=== PATIENT | male | born 1960 | race Caucasian/White ===

== ENCOUNTER 2017-01-21 18:42 | Emergency (ER) | payer MEDICAID ==
[2017-01-21 19:27] VITALS: BP 169/92
[2017-01-21] MEDS ORDERED: Tetracaine HCl/PF 0.5% 4 ML Bottle EYERT ONE (19:38)
[2017-01-21] MEDS ORDERED: Fluorescein 1 MG Ophth Strip EYERT ONE (19:38)
--- NOTE | 2017-01-21 20:17 | EDM.PDOC ---
ED HPI GENERAL MEDICAL PROBLEM - General Chief Complaint: ENT Problem Stated Complaint: right eye injury Time Seen by Provider: 01/21/17 19:30 Source of Information: Reports: Patient History Limitations: Reports: No Limitations - History of Present Illness INITIAL COMMENTS - FREE TEXT/NARRATIVE: Patient states he was moving a radar detector and when he disengaged the suction cup to move it, the mechanism broke and the high pressure sent springs and broken parts towards his right eye. He denies any difference in sight, blurriness is residual from his stroke he has had. No pain in the eye. He has no other complaints. Onset: Today, Sudden Location: Reports: Head (right eye) Associated Symptoms: Reports: No Other Symptoms Right Eye Pain Score (Numeric/FACES): 4 - Related Data Allergies Allergy/AdvReac Type Severity Reaction Status Date / Time hydrocodone AdvReac Nausea Verified 01/21/17 19:22 zolpidem tartrate AdvReac Confusion Verified 01/21/17 19:22 [From Nicol] Home Meds: Home Meds Losartan/Hydrochlorothiazide [Hyzaar 100-25] 1 tab PO DAILY 04/03/14 [History] Nitroglycerin 0.4 mg SL Q4HR #20 tab.subl 01/23/15 [Rx] Carvedilol [Carvedilol] 1 tab PO BID 01/21/17 [History] NIFEdipine [Nifedipine ER] 90 mg PO DAILY 01/21/17 [History] Past Medical History Cardiovascular History: Reports: Hypertension Other Musculoskeletal History: herniated discs Neurological History: Reports: CVA - Past Surgical History Other GI Surgeries/Procedures: hemorrhoid repair Social & Family History - Tobacco Use Smoking Status *Q: Never Smoker Second Hand Smoke Exposure: No - Alcohol Use Days Per Week of Alcohol Use: 0 - Recreational Drug Use Recreational Drug Use: No Recreational Drug Type: Reports: Amphetamines (Speed) (Greater than 30 years ago ) ED ROS GENERAL - Review of Systems Review Of Systems: See Below Constitutional: Reports: No Symptoms HEENT: Reports: Other (wants his eye looked at to be sure there is no damage) Respiratory: Reports: No Symptoms Cardiovascular: Reports: No Symptoms Endocrine: Reports: No Symptoms GI/Abdominal: Reports: No Symptoms : Reports: No Symptoms Musculoskeletal: Reports: No Symptoms Skin: Reports: No Symptoms Neurological: Reports: No Symptoms Psychiatric: Reports: No Symptoms Hematologic/Lymphatic: Reports: No Symptoms Immunologic: Reports: No Symptoms ED EXAM GENERAL W FULL EYE - Physical Exam Exam: See Below Exam Limited By: No Limitations General Appearance: Alert, WD/WN, No Apparent Distress Eye Exam: Right Eye: Other (eye examination reveals no foreign body, abrasions or lacerations), Bilateral Eye: EOMI, PERRL Eyelids: Bilateral: Normal Appearance Conjunctiva & Sclera: Bilateral: Normal Appearance Cornea Exam: Bilateral: Normal Appearance Extraocular Movements: Bilateral: Intact Pupils: Normal Accommodation Pupillary Size: Bilateral: 3 mm Pupillary Reaction: Bilateral: Brisk Anterior Chamber: Bilateral: Normal Appearance Posterior Chamber: 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) Respiratory/Chest: No Respiratory Distress, Lungs Clear, Normal Breath Sounds Cardiovascular: Normal Peripheral Pulses, Regular Rate, Rhythm, No Edema GI/Abdominal: Normal Bowel Sounds, Soft, Non-Tender Neurological: Alert, Oriented, CN II-XII Intact, Normal Cognition, Normal Gait, Normal Reflexes, No Motor/Sensory Deficits Psychiatric: Normal Affect, Normal Mood Skin Exam: Warm, Dry, Intact, Normal Color, No Rash Lymphatic: No Adenopathy Course - Vital Signs Last Recorded V/S: Last Vital Signs Temp 35.9 C 01/21/17 19:25 Pulse 98 01/21/17 19:25 Resp 18 01/21/17 19:25 BP 169/92 H 01/21/17 19:25 Pulse Ox 98 01/21/17 19:25 - Orders/Labs/Meds Meds: Medications Discontinued Medications Generic Name Dose Route Start Last Admin Trade Name Laxmi PRN Reason Stop Dose Admin Fluorescein Sodium 1 mg 01/21/17 19:38 Ful-Sierra EYERT 01/21/17 19:39 ONETIME ONE Tetracaine HCl 1 ml 01/21/17 19:38 Tetracaine 0.5% Steri-Unit Rosa EYERT 01/21/17 19:39 ONETIME ONE Departure - Departure Time of Disposition: 20:15 Disposition: Home, Self-Care 01 Condition: Good Clinical Impression: Foreign body in eyeball, right - Discharge Information Instructions: Eye Foreign Body, [id number] Referrals: Gonzalez Gipson MD [Primary Care Provider] - Additional Instructions: I did not see any corneal abrasions or lacerations of your right eye. Follow up with your usual eye doctor if you have any additional symptoms. Please call with any questions or concerns. - Problem List & Annotations (1) Foreign body in eyeball, right SNOMED Code(s): 12640731 Code(s): S05.51XA - PENETRATING WOUND W FOREIGN BODY OF RIGHT EYEBALL, INIT Status: Acute Current Visit: Yes Qualifiers: Encounter type: initial encounter Qualified Code(s): S05.51XA - Penetrating wound with foreign body of right eyeball, initial encounter - Problem List Review Problem List Initiated/Reviewed/Updated: Yes - Assessment/Plan Assessment:: Right eye injury Plan: I did not see any corneal abrasions or lacerations of your right eye. Follow up with your usual eye doctor if you have any additional symptoms. Please call with any questions or concerns.
== END 2017-01-21 20:19 | disposition home or self-care (01) ==
LOC: VM.ED 18:42
DX: T15.91XA Foreign body on external eye, part unspecified, right eye, initial encounter (principal); I10 Essential (primary) hypertension; Z88.5 Allergy status to narcotic agent; Z88.8 Allergy status to other drugs, medicaments and biological substances; Z79.899 Other long term (current) drug therapy; Z98.890 Other specified postprocedural states; X58.XXXA Exposure to other specified factors, initial encounter
CPT/HCPCS: 99283; A9270